=== PATIENT | female | born 2000 | race Caucasian/White ===

== ENCOUNTER 2022-07-21 07:01 | Observation (INO) | payer OTHER ==
[2022-07-21] VITALS (7 sets, daily range): BP systolic 115–135; BP diastolic 61–77
[~2022-07-21] VITALS: Ht 165.1 cm; Wt 78.9 kg
[~2022-07-21 07:01] MED LIST: BUSP5TA PO; CLINDAMYCIN 900 MG in IV 1 EA IV ONE; FLUO20CA22 PO; HEPARIN SOD (PORCINE) 5000UNITS/ML 1ML VIAL/SYRINGE SQ ONE
[2022-07-21] MEDS ORDERED: LR 1,000 ML IV SCH ×2 (07:50→12:55)
[2022-07-21] MEDS ORDERED: ACETAMINOPHEN 1000MG 100ML IV BAG As Ordered ONE (07:58)
[2022-07-21] MEDS ORDERED: ONDANSETRON 4MG 2ML VIAL As Ordered ONE (07:59)
[2022-07-21] MEDS ORDERED: SUGAMMADEX SODIUM 500 MG/5 ML VIAL (BRIDION) As Ordered ONE (07:59)
[2022-07-21] MEDS ORDERED: propofoL 200 MG/20 ML VIAL As Ordered ONE (07:59)
[2022-07-21] MEDS ORDERED: LIDOCAINE 2% 100MG/5ML SDV (FOR ANES.) As Ordered ONE (07:59)
[2022-07-21] MEDS ORDERED: ROCURONIUM BROMIDE 50MG/5ML VIAL As Ordered ONE (07:59)
[2022-07-21] MEDS ORDERED: MIDAZOLAM INJ 2MG/2ML VIAL As Ordered ONE (08:03)
[2022-07-21] MEDS ORDERED: fentaNYL 100 MCG/2 ML INJECTION As Ordered ONE (08:03)
[2022-07-21] MEDS ORDERED: BUPIVACAINE HCL 0.25% 30ML VIAL As Ordered ONE (09:13)
[2022-07-21] MEDS ORDERED: GENTAMICIN SULF 80MG/2ML VIAL As Ordered ONE (09:13)
[2022-07-21] MEDS ORDERED: BUPIVACAINE LIPOSOME/PF 1.3% 20ML VIAL (13.3MG/ML)(EXPAREL) As Ordered ONE (09:14)
[2022-07-21] MEDS ORDERED: HYDROmorphone HCL 2MG/ML 1ML VIAL As Ordered ONE (09:30)
[2022-07-21] MEDS ORDERED: HOME MED LIST COMPLETE! XX SCH (10:10)
[2022-07-21] MEDS ORDERED: ONDANSETRON 4MG 2ML VIAL IV PRN ×2 (12:55→13:10)
[2022-07-21] MEDS ORDERED: HYDROMORPHONE HCL 0.5 MG/ 0.5 ML SYRINGE IV PRN (12:55)
[2022-07-21] MEDS ORDERED: oxyCODONE 5MG TAB PO PRN (12:55)
[2022-07-21] MEDS ORDERED: ACETAMINOPHEN TAB 650MG DOSE (2X325MG) PO PRN (13:10)
[2022-07-21] MEDS: fentaNYL 100 MCG/2 ML INJECTION IV PRN ×5 (13:25→14:37)
[2022-07-21] MEDS ORDERED: CLINDAMYCIN 900 MG in IV 1 EA IV ONE (15:00)
[2022-07-21] MEDS: traMADol 50 MG TAB PO PRN ×2 (15:19→22:06)
[2022-07-21] MEDS: LR 1,000 ML IV SCH (16:42)
[2022-07-21] MEDS: PERCOCET 5MG/325MG TAB PO PRN (17:24)
[2022-07-22] MEDS: PERCOCET 5MG/325MG TAB PO PRN ×2 (01:14→11:28)
[2022-07-22 01:20] VITALS: BP 108/64
[2022-07-22] MEDS: LR 1,000 ML IV SCH (02:41)
[2022-07-22 05:15] VITALS: BP 103/58
[2022-07-22] MEDS ORDERED: PERCOCET PO (11:31)
== END 2022-07-22 13:42 | disposition home or self-care (01) ==
LOC: M SDC 07:01 → M MS5PR 07:02
PROVIDERS: ADMIT Plastic Surgery Surgery of the Hand; ATTEND Plastic Surgery Surgery of the Hand
DX: N62 Hypertrophy of breast (principal); F41.9 Anxiety disorder, unspecified; F32.A Depression, unspecified; F17.200 Nicotine dependence, unspecified, uncomplicated; Z79.899 Other long term (current) drug therapy; Z88.0 Allergy status to penicillin
CPT/HCPCS: 19318; 81025; 87635; 88305; 96360; 96361; C9290; J0131; J1100; J1170; J1580; J2250; J2405; J3010; S0020; S0077